=== PATIENT | male | born 1990 | race Caucasian/White ===

== ENCOUNTER 2023-06-20 19:52 | Emergency (ER) | payer OTHER ==
[2023-06-20] MEDS ORDERED: Lidocaine 1% 20 ML MDV INFILT ONE (19:53)
[2023-06-20] MEDS ORDERED: Diphtheria,Pertussis(Acell),Tetanus Vaccine 0.5 ML Syringe IM ONE (20:24)
[2023-06-20] MEDS ORDERED: Amoxicillin/Clavulanate K 875-125 MG Tab PO ONE (20:24)
[2023-06-20 21:45] VITALS: BP 134/87; PULSE 87
== END 2023-06-20 21:45 | disposition home or self-care (01) ==
LOC: FB.ED 19:52
DX: S51.851A Open bite of right forearm, initial encounter (principal); F17.210 Nicotine dependence, cigarettes, uncomplicated; Z23 Encounter for immunization; W54.0XXA Bitten by dog, initial encounter
CPT/HCPCS: 12002; 90471; 90715; 99283-25; A9270-GY

== ENCOUNTER 2025-06-19 21:08 | Emergency (ER) | payer OTHER ==
[2025-06-19 21:25] VITALS: BP 148/98; PULSE 112
== END 2025-06-19 21:23 ==
LOC: FB.ED 21:08
DX: Z02.89 Encounter for other administrative examinations (principal); Z79.899 Other long term (current) drug therapy
CPT/HCPCS: 99284